=== PATIENT | male | born 1995 | race African-American/Black ===

== ENCOUNTER 2025-07-15 23:06 | Emergency (ER) | payer MEDICAID ==
[~2025-07-15] VITALS: Ht 170.2 cm; Wt 68.2 kg
[2025-07-15 23:11] VITALS: O2SAT 98
[2025-07-16] MEDS ORDERED: KETOROLAC 15MG/ML VIAL IM ONE (00:45)
[2025-07-16 01:20] VITALS: TEMP 36.8
[2025-07-16] MEDS: LIDOCAINE 5% PATCH TOP SCH (01:20)
[2025-07-16] MEDS: ACETAMINOPHEN 325MG TABLET PO ONE (01:29)
[2025-07-16] MEDS ORDERED: LIDO-53 TP (02:17)
[2025-07-16] MEDS ORDERED: NAPR-1176 MT (02:17)
[2025-07-16 02:34] VITALS: BP 117/83; PULSE 61; RESP 17; O2SAT 99
== END 2025-07-16 02:30 | disposition home or self-care (01) ==
LOC: ER 23:06
DX: M79.632 Pain in left forearm (principal); M54.9 Dorsalgia, unspecified; J45.909 Unspecified asthma, uncomplicated; Z79.1 Long term (current) use of non-steroidal anti-inflammatories (NSAID); Y08.89XA Assault by other specified means, initial encounter; Y93.89 Activity, other specified; Y92.89 Other specified places as the place of occurrence of the external cause; Y99.8 Other external cause status
CPT/HCPCS: 73090; 73110; 99284